=== PATIENT | male | born 1955 | race Caucasian/White ===

== ENCOUNTER 2017-04-17 15:56 | Outpatient (CLI) | payer BC, MEDICARE ==
--- NOTE | 2017-04-17 16:42 | RAD ---
CHEST TWO VIEWS: History: Pneumonia, cough and fever. Comparison: None. FINDINGS: Two views chest. Normal cardiac silhouette. The pulmonary vessels and hilum are normal. Costophrenic angles are clear. Eventration of the right hemidiaphragm. No masses or consolidation. No pneumothorax or osseous abnormalities. IMPRESSION: No acute cardiopulmonary process. POS: [facility]
== END 2017-04-17 15:57 | disposition home or self-care (01) ==
LOC: SCSRAD 15:56
PROVIDERS: ATTEND Family Medicine
DX: J18.9 Pneumonia, unspecified organism (principal)
CPT/HCPCS: 71020

== ENCOUNTER 2018-07-16 07:00 | Day surgery (SDC) | payer BC, MEDICARE ==
[2018-07-15 13:06] VITALS: BMI 33.5
--- NOTE | 2018-07-16 09:58 | RAD ---
FLUOROSCOPIC-GUIDED LUMBAR MYELOGRAM: INDICATION: Radiculopathy. TECHNIQUE: Informed consent was obtained. Preprocedure curriculum and assessment coordinator images were performed. A site overlying the left L2-3 interlaminar space was marked. The site was prepped and draped in the usual sterile fashion. B uffered 1% Lidocaine was administered to the overlying subcutaneous tissues. Under fluoroscopic guid ance. A 22-gauge spinal needle was guided down into the thecal sac. There was spontaneous return of normal-appearing CSF fluid. There was administration of 10 cc of an Isovue-M 200 contrast solution. The inner stylette was placed within the needle and the needle was removed. Total fluoroscopic time is 0.6 minutes. Total exposure was 597.5 mCi*^m2. COMPARISON: Comparisons were made with a prior lumbar spine radiograph dated 05/07/2017. FINDINGS: The intervertebral disk cages spanning L3 through S1 are unchanged. The fractured pedicular screw on the left at S1 is stable. Lucency surrounding the left pedicle screw at L4 is stable suspicious for loosening. The right posterior interlumbar spinal fusion at L5-S1 is unchanged. The pedicular scre ws with radiolucent cables at L2 and L3 are stable. There are laminotomy changes seen on the right a t L2-3 and on the left at L4-5. There are vascular calcifications involving the abdominal aorta. No acute fracture is evident. IMPRESSION: Successful lumbar myelogram. POS: [facility]
[2018-07-16] MEDS ORDERED: Iopamidol-M 200 41% 20 ML VIAL ONE (10:18)
[2018-07-16 13:53] VITALS: BP 141/97; TEMP 97.4
--- NOTE | 2018-07-16 17:32 | CT ---
CT LUMBAR MYELOGRAM: 07/16/18 INDICATION: History of myelopathy and lumbar radiculopathy. COMPARISON: MR of the lumbar spine dated 11/12/17. TECHNIQUE: Multiple CT images were obtained in the lumbar spine following intrathecal administration of an Isovu e 200M solution. Please see the separately dictated lumbar myelogram for details concerning the injec tion technique. FINDINGS: There is postsurgical change of posterior lateral interbody fusion with radiolucent cables at the L2- 3 level. There is intervertebral cages seen at L3-4, L4-5 and L5-S1. There is solid osseous incorpora tion seen involving the interbody bone graft at L3-4 and L4-5. There is incomplete incorporation of a n interbody bone graft at the L5-S1 level. There is a left pedicle screw still in place at L4. There is a fractured left pedicle screw at S1. There is a right unilateral posterolateral spinal fusion con struct at L5-S1. There is retrolisthesis of L1 on L2 which is stable. At the L5-S1 level, there is postsurgical change of a left hemilaminectomy. There is a residual osteo phyte complex with facet hypertrophy causing mild neural foraminal encroachment without definite impi ngement. This is not appreciably changed from the comparison. At L4-5, there is a left hemilaminectomy. There is no appreciable central canal narrowing. There is a residual osteophyte complex on the right inducing right mild right neural foraminal narrowing which is stable to the prior exam. At L3-4, there is a mild broad based osteophyte complex and facet joint degenerative change but no ap preciable central canal or neural foraminal narrowing. At L2-3, there is a mild broad based disc osteophyte complex and facet hypertrophy inducing mild bila teral neural foraminal narrowing which is stable. At L1-2, there is a broad based bulge with facet hypertrophy. There is moderate right and mild left neural foraminal narrowing at L1-L2 due to osteophyte complex off the right L1-2 facet joint as well as disc osteophyte complex from the intervertebral disc level. There is also some mild central canal narrowing at L1-L2. IMPRESSION: 1. Mild central canal narrowing at L1-L2 with moderate right neural foraminal narrowing due to o steophyte complex off the right L1-2 facet joint as well as disc osteophyte complex from the interver tebral disc space. 2. Mild bilateral neural foraminal narrowing at L2-3 is stable. 3. Mild neural foraminal narrowing at L4-5 and L5-S1 appears stable to prior exam. 4. Solid osseous incorporation of interbody bone graft at L3-4 and L4-5. There is incomplete oss eous incorporation of interbody bone graft at L5-S1. POS: [facility]
== END 2018-07-16 10:15 | disposition home or self-care (01) ==
LOC: RAD 07:00
PROVIDERS: ATTEND Neurological Surgery
PROC: B01B1ZZ Fluoroscopy of Spinal Cord using Low Osmolar Contrast (ICD-10-PCS; principal; 2018-07-16)
DX: M54.16 Radiculopathy, lumbar region (principal); M48.061 Spinal stenosis, lumbar region without neurogenic claudication; G95.89 Other specified diseases of spinal cord; Z79.899 Other long term (current) drug therapy; Z98.1 Arthrodesis status; Z98.890 Other specified postprocedural states
CPT/HCPCS: 62304; 72132; Q9966

== ENCOUNTER 2018-12-25 08:02 | Outpatient (CLI) | payer BC, MEDICARE ==
[2018-12-25] MEDS ORDERED: Gadobenate Dimeglumine 529 MG/1 ML (20ML VIAL) ONE (09:00)
--- NOTE | 2018-12-25 09:21 | MRI ---
CERVICAL SPINE MRI WITH AND WITHOUT CONTRAST: Date: 12/25/2018 COMPARISON: None. HISTORY: Neck pain with left upper extremity radiculopathy, prior cervical spine surgery. TECHNIQUE: Multiplanar multisequence MR imaging of the cervical spine obtained with and without contr ast. FINDINGS: The sagittal STIR imaging demonstrates no focal area of osseous marrow edema. Anterior discectomy and fusion hardware present at C5-6/C6-7. There is mild degenerative change at the atlantoaxial interspace. C2-3: No significant central canal or neural foraminal stenosis. C3-4: Mild bilateral facet and uncovertebral osteophyte formation. Minimal disc bulge. No central can al or neural foraminal stenosis. C4-5: There is bilateral facet hypertrophy and uncovertebral osteophyte formation, right greater than left. Minimal disc bulge with no significant central canal stenosis. Mild bilateral neural foraminal stenosis, right greater than left. C5-6: Bilateral uncovertebral osteophyte formation, right greater than left. Minimal disc bulge with no significant central canal stenosis. Mild left and moderate right neural foraminal stenosis. C6-7: Mild disc bulge with no significant central canal stenosis. Mild bilateral uncovertebral osteop hyte formation with no significant neural foraminal stenosis. C7-T1: Unremarkable. Postcontrast imaging demonstrates no abnormal enhancement involving contents of the thecal sac, image d osseous structures, or intervertebral disks. IMPRESSION: Postoperative and degenerative change within the cervical spine as described above. Transcribed Date/Time: 12/25/2018 9:26 AM
== END 2018-12-25 08:03 | disposition home or self-care (01) ==
LOC: SCSMRI 08:02
PROVIDERS: ATTEND Family Medicine
DX: M47.22 Other spondylosis with radiculopathy, cervical region (principal); Z98.890 Other specified postprocedural states
CPT/HCPCS: 72156; 82565; A9577